=== PATIENT | male | born 1990 | race African-American/Black ===

== ENCOUNTER → 2021-07-17 02:35 | Outpatient (CLI) | payer OTHER, SELFPAY ==
[2021-07-17 12:39] LABS: SARS-CoV-2 RNA PCR Negative
== END ==
PROVIDERS: Visit Provider Otolaryngology
DX: Z01.812 Encounter for preprocedural laboratory examination (principal); Z20.822 Contact with and (suspected) exposure to COVID-19
CPT/HCPCS: C9803; U0003; U0005

== ENCOUNTER 2021-07-20 02:10 | Day surgery (SDC) | payer OTHER, SELFPAY ==
[2021-07-13 14:39] VITALS: BMI 25.1
--- NOTE | 2021-07-13 14:57 | PC.NURSE ---
Report to the Outpatient Waiting Room, entrance under the green pavilion located off [facility], at time 0800 on date 07/20/21. OR Time: 1000. - You and your visitor will be asked a series of questions to screen for COVID 19 for your protection. - A mask is required within the hospital. One visitor will be allowed to accompany the patient into the hospital. Patients visitor will be instructed to remain with patient at all times or leave the building. We will allow the visitor to come back to the postoperative area when patient is ready. Preoperative COVID Testing Requirements: COVID TEST 07/17 AT 0905 No COVID Test needed if: (proof is required; if not received patient will have Rapid Test prior to entry) - Patient has received COVID Vaccine at least 14 days prior to procedure date or - Patient has positive COVID test result within last 90 days of surgery date. COVID Test needed if above criteria is not met If not COVID vaccinated a COVID test must be conducted within 72 hours of surgery and patient is asked to isolate self from time of testing until procedure. You will go to the [facility] for your COVID testing. The [facility] site is located at the corner of [address] [facility]. You will only be called if COVID results are positive and your surgeon may reschedule your elective surgery date. Patients may have clear liquids (water, carbonated beverages, clear teas, apple juice) until 3 hours prior to surgery with a maximum of 20 ounces. - No food from midnight until time of surgery Take the following medications with a SIP of water the morning of surgery: NONE Medications to discontinue per physician: N/A Date to take last dose: N/A Please no make-up, nail georgian, hairspray, perfume, deodorant, or body powder the day of surgery. No jewelry (including any body piercings) or valuables the day of surgery, leave them at home. Please take a shower or bath the night before, or the morning of, surgery with an antibacterial soap. Wear comfortable, loose fitting clothing. - Jewelry must be removed prior to entering the operating room. Rings and piercings that are not removed may be cut off. - The hospital will not accept responsibility for valuables. - Please leave all valuables, including medications, at home the day of surgery. If you are going home after surgery, a licensed tilt tray driver must drive you home. - NO public transportation without another adult. - We recommend that an adult stay with you for 24 hours following discharge. - We also recommend that you do not drive, make important decision, drink alcoholic beverages, or take any drugs that were not prescribed by your health care provider for at least 24 hours after your discharge time. Follow any additional instructions given to you from your surgeon. Telephone instructions given to ALEC DEL ROSARIO and asked if any additional questions and then verbalized understanding. Patient advised to call surgeon office or pre surgery nurse liaison [phone] if any additional questions.
[2021-07-20] VITALS (9 sets, daily range): BP systolic 119–140; BP diastolic 73–97; PULSE 70–101; RESP 12–20; TEMP 36.2–37.3; O2SAT 94–100
--- NOTE | 2021-07-20 07:21 | WPDHPUPDATE1 ---
History and Physical Update Update Date/Time: 07/20/21 07:21 History and Physical has been reviewed, including an updated exam of the patient. There are NO changes in the patient's condition. Risks, benefits, and alternatives have been discussed and questions answered. Patient agrees to proceed with procedure.
--- NOTE | 2021-07-20 07:29 | WPDANESEPPF ---
Anes - Initial Pre Proc Eval Procedure: Operation Date: 07/20/21 08:30 Proposed Procedures p Bilateral Tonsillectomy - Xavier Marie MD Date/Time: 07/20/21 07:29 Surgeon: Xavier Marie MD Pre Op Diagnosis: tonsilar hypertrophy, chronic tonisilits Patient Data Age: 31 Gender: M Height: 1.65 m Weight: 68.5 kg Allergies Allergy/AdvReac Type Severity Reaction Status Date / Time No Known Allergies Allergy Verified 07/13/21 14:38 Home Medications Medication Instructions Recorded Confirmed Type No Home Medications 07/13/21 07/13/21 History Patient hx anesthesia problems: none Family hx anesthesia problems: none Results Review: All pre-operative results and documents have been reviewed as part of the pre-operative evaluation. [facility] Past Medical History Medical History (Updated 07/20/21 @ 07:29 by Juan Garay MD) Tobacco abuse Social History Social History Smoking status: Current some day smoker Tobacco type: cigars Alcohol intake: current Alcohol use details: A COUPLE/MONTH Substance use: never Substance use type: does not use Living arrangements: with family Spiritual care concerns: No Anes - Eval Final PreProcedure Day of Procedure 07/20/21 07:29 Patient weight: normal Heart: regular rate and rhythm Lungs: clear to auscultation and normal air movement Airway: Mallampati scale class II Neurological: alert and oriented Last oral intake: >/= 8 hours ASA classification: II Emergent: no Anesthetic plan: proceed Anesthesia type and monitoring: general ETT Results Review: All pre-operative results and documents have been reviewed as part of the pre-operative evaluation. Informed Consent: The patient's anesthetic plan and its attendant risks and benefits were discussed with the patient/family/POA. Questions were solicited and answers provided to the satisfaction of the patient/family/POA.
[2021-07-20] MEDS: ACETAMINOPHEN 500 MG TABLET 1000 MG PO (07:32)
[2021-07-20] MEDS: LACTATED RINGERS 1,000 ML 30 ML IV CONT (07:40)
--- NOTE | 2021-07-20 08:38 | W.PM.PROC2 ---
Procedure Note - Detailed Date of Procedure 07/20/21 Pre-op Diagnosis tonsilar hypertrophy, chronic tonisilits Post-op Diagnosis Same Procedure Performed Tonsillectomy Surgeon Xavier Marie MD Anesthesia General Indications chronic tonsillitis Findings 3+ tonsils Description of Procedure On the date of procedure the patient was met in the preoperative area and risk and benefits of the procedure reviewed with the patient who elected to proceed with surgery. The patient was brought back to the room by the anesthesia team and placed under general endotracheal anesthesia. Once an adequate plane of anesthesia was obtained a timeout was performed to assure the patient identification the procedure to be performed were correct. The patient was then prepped and draped in the normal fashion for tonsillectomy. A head wrap and shoulder roll were placed. A Danisha-Ricky retractor was inserted into the patient's oral cavity and the patient was suspended from the Lawler stand. The left tonsil grasped with a curved tonsillar tenaculum retracted medially and removed with electrocautery set on 15 standard. After the tonsil was removed the tonsillar fossa was inspected and no bleeding was noted. The right tonsil was then grasped with a curved tenaculum and retracted medially and removed in an identical manner. The tonsillar fossa was inspected and hemostasis was obtained with suction bovie electrocautery. The patient was taken out of suspension and then placed back into suspension. The tonsillar fossas were once again inspected and no bleeding was noted. A tonsil sponge was used to gently abrade the area and no bleeding was noted. The patient was removed from suspension. The Danisha-Ricky retractor was removed from the patient's oral cavity. There was no damage to the patient's teeth or lips. Care of the patient was then returned to anesthesia who extubated in the operating room and transferred the patient to recovery in stable condition without complication. Estimated Blood Loss 10 Drains No Packing No Pathology Yes (right and left tonsil) Complications No immediate complications Condition Stable Disposition PACU
[2021-07-20] MEDS: fentaNYL CITRATE INJ (*CRX) 100 MCG/2 ML VIAL 25 MCG IV PUSH ×2 (09:19→09:25)
[2021-07-20] MEDS: oxyCODONE HCL (*CRX) 5 MG TAB IR PO (10:17)
== END 2021-07-20 10:41 | disposition home or self-care (01) ==
PROVIDERS: Visit Provider Otolaryngology
PROC: (CPT 42826; principal; 2021-07-20 08:30)
DX: J35.01 Chronic tonsillitis (principal); Z72.0 Tobacco use
CPT/HCPCS: 42826; 88300; 88304; A9270; C9803; J0330; J1100; J2250; J2405; J2704; J3010; J7120; U0003; U0005